=== PATIENT | male | born 1995 | race Caucasian/White ===

== ENCOUNTER 2017-01-09 09:57 | Emergency (ER) | payer SELFPAY ==
[~2017-01-09] VITALS: Ht 188 cm; Wt 86.0 kg
[2017-01-09] MEDS ORDERED: TETRACAINE 0.5% OPHTHALMIC SOLUTION 4 ML BTL OU ONE (10:05)
[2017-01-09] MEDS ORDERED: ERYTHROMYCIN 0.5% OPHTHALMIC OINTMENT 1 GM TUBE OU ONE (10:05)
[2017-01-09] MEDS ORDERED: EYE WASH 120 ML BTL OU ONE (10:05)
[2017-01-09] MEDS ORDERED: FLUORESCEIN (FLUOR-I-STRIPS) 1 MG STRIP OU ONE (10:05)
[2017-01-09] MEDS ORDERED: CYCLOPENTOLATE 2% OU ONE (10:30)
[2017-01-09 11:19] VITALS: BP 121/82
== END 2017-01-09 11:15 | disposition home or self-care (01) ==
LOC: ED 09:59
DX: H16.133 Photokeratitis, bilateral (principal)
CPT/HCPCS: 99283; A9270

== ENCOUNTER → 2017-02-28 | Outpatient (CLI) | payer MEDICAID ==
[~2017-02-28] MED LIST: AMPH30TA2 PO; CYCL10TA45 PO; DEXT10TA12 PO; DICL100G13 TOP; HYDR-3702 PO; HYDR-707 PO; IBUP-788 PO; NAPR550T PO
[2017-02-28 12:51] VITALS: BP 118/73
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
== END ==
LOC: MHUC 10:18
PROVIDERS: ATTEND Physician Assistant
DX: M79.1 Myalgia (principal); M54.5 Low back pain
CPT/HCPCS: 99213